=== PATIENT | female | born 1975 | race Hispanic/Latino ===

== ENCOUNTER → 2020-09-25 | Outpatient (CLI) | payer OTHER ==
[2020-09-25 15:40] LABS: HEMOGLOBIN A1c 5.5 %
[2020-09-25 15:53] LABS: ALBUMIN 4.3 GM/DL (3.2-5.2); ALT/SGPT 35 U/L (12-78); BILIRUBIN,TOTAL 0.6 MG/DL (0.2-1.0); BLOOD UREA NITROGEN 12 MG/DL (7-18); CALCIUM LEVEL 9.2 MG/DL (8.5-10.1); CARBON DIOXIDE LEVEL 31 MEQ/L (21-32); CHLORIDE LEVEL 102 MEQ/L (98-107); CREATININE FOR GFR 0.79 MG/DL (0.55-1.30); GLOMERULAR FILTRATION RATE > 60.0 (>58); GLUCOSE, FASTING 90 MG/DL (70-100); POTASSIUM SERUM 4.1 MEQ/L (3.5-5.1); SODIUM LEVEL 138 MEQ/L (136-145); TOTAL PROTEIN 7.4 GM/DL (6.4-8.2)
== END ==
LOC: M LAB 12:56
PROVIDERS: ATTEND Physician Assistant
DX: R73.01 Impaired fasting glucose (principal)

== ENCOUNTER → 2020-10-10 | Outpatient (CLI) | payer OTHER | LOC: M WHC 14:48 → EDUNIT# 15:00 | PROVIDERS: ATTEND Physician Assistant | DX: Z12.31 Encounter for screening mammogram for malignant neoplasm of breast (principal) ==

== ENCOUNTER → 2020-11-10 | Outpatient (CLI) | payer OTHER ==
--- NOTE | 2020-11-10 17:07 | REP ---
INDICATION: LEFT BREAST ADD VEIWS. COMPARISON: Comparison mammography October 10, 2020, January 16, 2019, and July 07, 2017. TECHNIQUE: Magnified focal spot-compression CC, MLO, and true mediolateral views are obtained. 3D tomography is deployed in the mediolateral projection and targeted left breast sonography is carried out. This mammogram was interpreted with the aid of an FDA-approved computer-aided detection system. FINDINGS: Breast parenchyma is again seen to be heterogeneously dense. There are 2 well-circumscribed nodular opacities projecting in the upper outer quadrant as seen on recent screening mammography. On mammography, these measure 9 and 8 mm in greatest diameter respectively. No other significant mammographic finding. The Volpara volumetric breast density pattern is C. Targeted ultrasound: Targeted left breast sonography is performed in the upper outer quadrant, 1:00 to 3:00. At 1 o'clock, 3.4 cm from the nipple, there is a 8 mm simple cyst. At 2 o'clock, 3.8 cm from the nipple there is a 10 mm cyst. These have benign appearance. No suspicious sonographic findings. IMPRESSION: BIRADS/ACR category 2 benign left breast mammographic and sonographic findings. Simple cysts identified sonographically. This patient's Tyrer-Cuzick lifetime breast cancer risk assessment score is 9.2%. RECOMMENDATION: Repeat screening mammography recommended 1 year (for women over 40). The patient letter being requested is M1 dense. <Electronically signed by Linden Weber > 11/10/20 0332
== END ==
LOC: M WHC 14:21
PROVIDERS: ATTEND Physician Assistant
DX: R92.2 Inconclusive mammogram (principal)

== ENCOUNTER → 2021-07-22 | Outpatient (CLI) | payer OTHER | LOC: M WHC 11:14 | PROVIDERS: ATTEND Family Medicine | DX: N63.12 Unspecified lump in the right breast, upper inner quadrant (principal) ==

== ENCOUNTER → 2021-11-25 | Outpatient (CLI) | payer OTHER | LOC: M WHC 08:50 | PROVIDERS: ATTEND Family Medicine | DX: Z12.31 Encounter for screening mammogram for malignant neoplasm of breast (principal) ==

== ENCOUNTER → 2022-07-02 | Outpatient (CLI) | payer OTHER | LOC: M RAD 06:54 | PROVIDERS: ATTEND Pain Medicine Interventional Pain Medicine | DX: M54.12 Radiculopathy, cervical region (principal) ==

== ENCOUNTER → 2022-11-24 | Outpatient (CLI) | payer OTHER | LOC: M RAD 09:43 | PROVIDERS: ATTEND Physician Assistant Medical | DX: R10.13 Epigastric pain (principal) ==

== ENCOUNTER → 2022-12-15 | Outpatient (CLI) | payer OTHER | LOC: M WHC 10:04 | PROVIDERS: ATTEND Family Medicine | DX: R92.8 Other abnormal and inconclusive findings on diagnostic imaging of breast (principal) ==